=== PATIENT | male | born 1975 | race Two or more races ===

== ENCOUNTER 2016-09-01 16:58 | Emergency (ER) | payer BC ==
--- NOTE | ~2016-09-01 | ER ---
[facility] AGE: 40 Y [address] ROOM: [place] [id number] LOCATION: [facility] ADMIT DATE: 09/01/2016 ER/Outpatient Report DISCHARGE DATE: 09/01/2016 FAMILY PHYSICIAN: Physician, Unknown ATTENDING PHYSICIAN: Rakesh Resendez TIME SEEN: At 1715 hours. HISTORY OF PRESENT ILLNESS: The patient is a 40-year-old male from [place], [place]. The patient has a history of HIV. The patient presents complaining of a cough productive at times. Symptoms have been present for a week. He has also had fever which started today and headache. The patient was seen at [facility] on first of the week. He was not started on any antibiotics. ALLERGIES: NONE. HOME MEDICATIONS: See his copied list. MEDICAL HISTORY: HIV which he is followed by Infectious Disease here in [place]. SURGERIES: He has had warts removed about 5 months ago. SOCIAL HISTORY: Nonsmoker. He denies alcohol. He does work at [employer] in [place]. REVIEW OF SYSTEMS: GENERAL: Today, he has had a low-grade fever. HEAD AND ENT: Includes some nasal stuffiness and congestion. Denied sore throat. RESPIRATORY: Cough productive at times. Denies any chest pain. GASTROINTESTINAL: Has had some weight loss over the last few months. No vomiting. No diarrhea. GENITOURINARY: No dysuria. SKIN: No rash. OBJECTIVE FINDINGS: VITAL SIGNS: Blood pressure was 120/67, his temperature was 100.8, his respiratory rate was 20, pulse 99, and O2 saturations 98%. GENERAL APPEARANCE: Appeared somewhat underweight. He is alert. PAT[facility]'S NAME: [facility] AGE: 40 Y [address] ROOM: [place] [id number] LOCATION: [facility] ADMIT DATE: 09/01/2016 ER/Outpatient Report DISCHARGE DATE: 09/01/2016 FAMILY PHYSICIAN: Physician, Unknown ATTENDING PHYSICIAN: Rakesh Resendez HEENT: Head: Normal size, normocephalic. Ears: Both TMs appeared normal. Nose: Congested. Throat: No redness or exudate. NECK: No rigidity. No adenopathy. LUNGS: Few scattered rhonchi present. ABDOMEN: Soft and nontender. DIAGNOSTIC DATA: Chest x-ray: No consolidation, questionable early infiltrates starting in the right middle lobe. LABORATORY DATA: CMS: Electrolytes were normal. Calcium was slightly low at 8.4, a slight elevation of his AST at 53 as well as his alkaline phosphatase at 155. CBC: White count 10.5, hemoglobin 14.3, and ANC was at 7.6. Prolactin was 0.05. Two blood cultures were drawn. ASSESSMENT: 1. Cough. 2. Human immunodeficiency virus positive. PLAN: I talked to Dr. Mcguire about treatment. She thought we should be able to treat him as an outpatient with Levaquin. The patient was prescribed Levaquin 500 mg daily for 10 days. Recommend fluids. Follow up within next 24-48 hours with either Infectious Disease or return to the emergency room. The patient verbalized understanding of his take-home instructions. JAS YODER FOR MD JOLLY UMANA/gonzalez /[id number] d: 09/02/16 0049 t: 09/15/16 1210, OUTPATIENT REPORT
[2016-09-01 17:53] LABS: BASOPHIL % 0.3 %; EOSINOPHIL # 0.1 K/uL (0.0-0.5); EOSINOPHIL % 1.1 %; HEMATOCRIT 44.1 % (37.0-53.0); HEMOGLOBIN 14.3 g/dL (12.0-17.0); IMMATURE GRANULOCYTE % 0.4 %; LYMPHOCYTE # 2.2 K/uL (0.8-4.0); LYMPHOCYTE % 20.5 %; MCH 31.2 pg (27.0-34.0); MCHC 32.4 gm/dL (32.0-36.5); MCV 96.3 fl (83.0-98.0); MONOCYTE # 0.6 K/uL (0.0-1.0); MONOCYTE % 5.2 %; MPV 8.7 fl (9.4-12.4); NEUTROPHIL # (ANC) 7.6 K/uL (1.4-9.0); NEUTROPHIL % 72.5 %; NRBC % 0 /100WBC (0-0.00); PLATELET COUNT 271 K/uL (150-450); RBC 4.58 M/uL (4.00-6.00); RDW-CV 12.1 % (11.9-14.6); WBC 10.5 K/uL (4.0-11.0)
[2016-09-01 18:16] LABS: ALBUMIN 3.7 gm/dL (3.5-5.0); ALK PHOS 155 IU/L (33-138); ALT 48 IU/L (12-78); ANION GAP 11.9 (10.0-19.0); AST 53 IU/L (10-40); BLOOD UREA NITROGEN 9 mg/dL (6-24); CALCIUM 8.4 mg/dL (8.5-10.5); CHLORIDE 101 mMol/L (96-110); CO2 26 mMol/L (22-32); ESTIMATED GFR (MDRD EQUATION) > 60; POTASSIUM 3.9 mMol/L (3.7-5.1); SODIUM 135 mMol/L (135-145); TOTAL BILIRUBIN 0.3 mg/dL (0.0-1.5); TOTAL PROTEIN 8.5 g/dL (6.0-8.4)
== END 2016-09-01 18:56 | disposition disaster alternative care site (69) ==
LOC: GMED 16:58
PROVIDERS: Physician Assistant Medical
DX: Z21 Asymptomatic human immunodeficiency virus [HIV] infection status (principal); R05 Cough; Z79.899 Other long term (current) drug therapy